=== PATIENT | female | born 1935 | race Caucasian/White ===

== ENCOUNTER 2018-05-29 09:33 | Emergency (ER) | payer OTHER ==
--- NOTE | 2018-05-29 09:42 | PDOC ---
History of Present Illness - General Chief Complaint: Pain Stated Complaint: LEFT HAND SWELLING, PAIN Time Seen by Provider: 05/29/18 09:37 History Source: Patient, Family (Daughter) Exam Limitations: No Limitations - History of Present Illness Initial Comments: Pt, with PMH of rheumatoid arthritis, HTN, HLD, and anxiety, presents with pain and swelling of the L index finger x 2 weeks. The pt states the pain is located in the joint space of the L index finger (points to MCP and PIP) and on the palmar aspect of the L hand. She has occasional flares of arthritis, but the pain normally only lasts for 1-2 days. This episode has lasted for 2 weeks, is worsening in pain and swelling, and is now disturbing her sleep. She took 2 aspirin this morning with no relief of pain. The pain is sharp, lasts for a few minutes at a time, and is worse with flexion of the wrist and fingers. She denies any fevers/chills, nausea/vomiting, other joint pain, recent punctures or insect bites, or changes to BM or urination. The pt states she avoids eating red meats and other high fat/protein foods. She is normally seen by Dr. Pandya for PCP, who stated the pt was seen for RA work-up. She did not have significantly elevated CRP/ESR and has not taken any steroidal medications for flares. She has never had a history of gout. 05/29/18 10:41 Past History - Travel Traveled outside of the country in the last 30 days: No Close contact w/someone who was outside of country & ill: No - Past Medical History Allergies/Adverse Reactions: Allergies Allergy/AdvReac Type Severity Reaction Status Date / Time No Known Allergies Allergy Verified 05/29/18 09:34 Home Medications: Ambulatory Orders Amlodipine Besylate 5 mg PO BID 05/29/18 Atorvastatin Ca [Lipitor] 10 mg PO HS 05/29/18 Lisinopril 20 mg PO BID 05/29/18 Lorazepam 1 mg PO TID 05/29/18 Methylprednisolone [Medrol Dose Niraj] 4 mg PO ASDIR #21 tablet 05/29/18 Ranitidine [Zantac -] 150 mg PO BID 05/29/18 Sertraline HCl 50 mg PO DAILY 05/29/18 Anemia: No Asthma: No Cancer: No Cardiac Disorders: No CVA: No COPD: No CHF: No Dementia: No Diabetes: No GI Disorders: Yes (HH.PYLORIC GASTRITIS) Disorders: No HTN: Yes Hypercholesterolemia: Yes Liver Disease: No Seizures: No Thyroid Disease: No - Surgical History Abdominal Surgery: No Appendectomy: No Cardiac Surgery: No Cholecystectomy: No Lung Surgery: No Neurologic Surgery: No Orthopedic Surgery: No - Suicide/Smoking/Psychosocial Hx Smoking History: Never smoked Have you smoked in the past 12 months: No Information on smoking cessation initiated: No Hx Alcohol Use: No Drug/Substance Use Hx: No Substance Use Type: None Hx Substance Use Treatment: No Review of Systems - Review of Systems Able to Perform ROS?: Yes Is the patient limited Indonesian proficient: No Constitutional: Yes: Weight Stable. No: Chills, Diaphoresis, Fever, Loss of Appetite, Malaise HEENTM: No: Blurred Vision, Recent change in vision, Hearing Loss, Difficulty Swallowing Respiratory: No: Cough, Orthopnea, Shortness of Breath Cardiac (ROS): No: Chest Pain, Edema, Irregular Heart Rate, Palpitations, Syncope ABD/GI: No: Abdominal Distended, Constipated, Diarrhea, Nausea, Poor Appetite, Poor Fluid Intake, Vomiting : No: Burning, Dysuria, Frequency, Hematuria, Pain, Urgency Musculoskeletal: Yes: Joint Pain (Pain in L index MCP/PIP and palmar aspect under index MCP.), Joint Swelling (occasional swelling and stiffness of hands and wrists. ), Joint Stiffness. No: Back Pain Integumentary: No: Bruising, Rash, Sweating Neurological: No: Headache, Paresthesia, Weakness Psychiatric: No: Sleep Pattern Change, Change in Appetite Endocrine: No: Change in Weight Hematologic/Lymphatic: No: Anemia, Blood Clots All Other Systems: Reviewed and Negative *Physical Exam - Vital Signs Last Vital Signs Temp Pulse Resp BP Pulse Ox 98 F 86 18 177/81 97 05/29/18 09:33 05/29/18 09:33 05/29/18 09:33 05/29/18 09:33 05/29/18 09:33 - Physical Exam General Appearance: Yes: Appropriately Dressed, Thin. No: Apparent Distress HEENT: positive: EOMI, Normal ENT Inspection, Normal Voice, Symmetrical, Pharynx Normal, Hearing Grossly Normal Neck: positive: Trachea midline, Normal Thyroid, Supple. negative: Tender, Rigid Respiratory/Chest: positive: Lungs Clear, Normal Breath Sounds. negative: Chest Tender, Respiratory Distress, Accessory Muscle Use Cardiovascular: positive: Regular Rhythm, Regular Rate, S1, S2. negative: Edema , JVD, Murmur Vascular Pulses: Carotid (R): 4+, Carotid (L): 4+ Comments:: Radial pulses intact b/l 05/29/18 18:26 Gastrointestinal/Abdominal: positive: Normal Bowel Sounds, Flat, Soft. negative : Tender, Organomegaly, Pulsatile Mass Lymphatic: negative: Adenopathy, Tenderness Musculoskeletal: positive: Decreased Range of Motion (Firm swelling and decreased flexion and extension of L MCP and PIP). negative: Normal Inspection , CVA Tenderness Extremity: positive: Normal Capillary Refill, Normal Inspection, Tender (Warm, tender L index MCP and PIP, tenderness over palmar aspect below MCP). negative : Normal Range of Motion Integumentary: positive: Normal Color, Dry, Warm, Swelling (L index). negative : Bruising Neurologic: positive: tooth cutter pinion II-XII NML intact, Fully Oriented, Alert, Normal Mood/ Affect, Normal Response, Motor Strength 03/12 ED Treatment Course - LABORATORY CBC & Chemistry Diagram: 05/29/18 10:00 05/29/18 10:00 Medical Decision Making - Medical Decision Making Pt seen with Dr. Reagan. Will start 1 g ofirmev for pain. Ordered CBC, CMP, uric acid, ESR, CRP and L hand x-ray to r/o gout vs cellulitis vs arthritis flare. 05/29/18 09:[address] Pandya who agreed with plan. Pending results to determine potential observation (cellulitis) versus discharge with close follow-up by Dr. Pandya and rheumatology or Dr. Andrade (ortho). CBC showed no increased WBC. Per Dr. Reagan, x-ray shows some joint space narrowing at thumb and index MCP/PIP. No osteolytic changes or fractures noted. Awaiting CMP and inflammatory markers. 05/29/18 10:37 (Entered later) ESR and CRP slightly above baseline (30/.5). Will follow-up in clinic with Dr Pandya and Dr. Andrade (ortho). Likely flare of rheumatoid arthritis. Provided 10 mg dexamethasone and prescribed medrol pack until pt can see Dr. Pandya tomorrow. 07/22/18 18:28 *DC/Admit/Observation/Transfer Diagnosis at time of Disposition: Joint pain in fingers of left hand - Discharge Dispostion Disposition: HOME Condition at time of disposition: Improved Decision to Admit order: No - Prescriptions Prescriptions: Methylprednisolone [Medrol Dose Niraj] 4 mg PO ASDIR #21 tablet - Referrals Referrals: Ladarius Pandya MD [Primary Care Provider] - Bharat Andrade MD [Staff Physician] - Renny Brown MD [Staff Physician] - - Patient Instructions Printed Discharge Instructions: DI for Rheumatoid Arthritis, DI for Joint Pain Additional Instructions: You were given a dose of steroids in the ER for the joint pain in your finger. A steroid pack has been sent to your pharmacy. You may take the steroid (4 mg) before your appointment with your primary care doctor. Please see Dr. Pandya in clinic tomorrow and you can also see Dr. Andrade in orthopedics. Please return if you have any worsening pain, fevers or chills, inability to tolerate food or fluids, or any other concerns. - Post Discharge Activity
--- NOTE | 2018-05-29 09:43 | PDOC ---
Attending Attestation - Resident Resident Name: Charley Houser - ED Attending Attestation I have performed the following: I have examined & evaluated the patient, The case was reviewed & discussed with the resident, I agree w/resident's findings & plan, Exceptions are as noted - HPI HPI: 05/29/18 09:50 A 83-year-old female history of hypertension hyperlipidemia and arthritis here today complaining of left hand pain near the index finger and middle finger. Patient states she woke up today with the pain. Has had episodes of intermittent swelling but denies any history of gout no fever no chills denies any trauma has been sweeping the floor recently otherwise no injuries. Overall feels that the hand is painful worse with movement she did take 2 ibuprofen prior to arrival this a.m. no relief - Physicial Exam PE: 05/29/18 09:52 Awake alert no acute distress cardiac exam is unremarkable equal breath sounds bilaterally heart is regular with any murmurs rubs or gallops. Left hand is noted for swelling erythema and warmth along the left index finger decreased range of motion at the MCP PIP and DIP joints. Some swelling erythema to to the distal palm at the base of the index finger pain with passive range of motion finger is held in slight flexion however there is no pain along the tendon sheath on palpation distally the patient is neurovascularly intact she has 2+ radius and ulnar pulses the wrist is with full range of motion nontender - Medical Decision Making 05/29/18 09:53 Differential diagnosis for this left hand swelling includes cellulitis, gouty arthritis however unlikely due to the patient's first episode at 83 years old, worsening arthritis a cold injury plan CBC CMP ESR CRP and uric acid. X-rays of the left index finger. We'll start with Tylenol for pain and reassess 05/29/18 10:46 Discussion with patient's primary Dr. Pandya that patient does have a history of questionable rheumatoid arthritis and did test positive for rheumatoid factor in the past. She has had intermittent flares in her hands has never required steroids in the past. Review of the patient's chart shows that she does also have a history of esophageal varices does take baby aspirin daily no current melena or bleeding issues labs pending x-rays show mild degenerative changes at the PIP joints of both the index middle finger as well as the IP joints of the thumb and CMC joint consistent with likely rheumatoid arthritis
[2018-05-29 09:46] VITALS: TEMP 98; BMI 22.8
[2018-05-29] MEDS ORDERED: ACETAMINOPHEN 1000 MG/100 ML VIAL (NON FORMULARY) IVPB ONE (09:54)
[2018-05-29] MEDS ORDERED: ACETAMINOPHEN INJECTION 100 ML IVPB ONE (10:03)
[2018-05-29 10:26] LABS: BASO % 0.8 % (0-2.0); EOS % 0.9 % (0-4.5); HEMATOCRIT 38.4 % (32.4-45.2); HEMOGLOBIN 13.1 GM/dl (10.7-15.3); LYMPH % 22.7 % (8-40); MCH 31.5 pg (25.7-33.7); MCHC 34.1 g/dl (32.0-36.0); MEAN CELL VOLUME 92.4 fl (80-96); MEAN PLT VOLUME 9.2 fl (7.5-11.1); MONO % 9.6 % (3.8-10.2); PLATELET COUNT 239 K/MM3 (134-434); RBC 4.16 M/mm3 (3.60-5.2); RDW 12.1 % (11.6-15.6); WHITE BLOOD COUNT 7.2 K/mm3 (4.0-10.8)
[2018-05-29 10:42] LABS: ALBUMIN 3.7 g/dl (3.5-5.0); ALK PHOS 83 U/L (32-92); ANION GAP 8 (8-16); BILIRUBIN,TOTAL 0.7 mg/dl (0.2-1.0); BLOOD UREA NITROGEN 12 mg/dl (7-18); CALCIUM 8.9 mg/dl (8.4-10.2); CHLORIDE 100 mmol/L (98-107); CO2 24 mmol/L (22-28); CREATININE 0.6 mg/dl (0.6-1.3); GLUCOSE,RANDOM 86 mg/dl (74-106); POTASSIUM 4.2 mmol/L (3.5-5.1); SGOT/AST 30 U/L (10-42); SGPT/ALT 19 U/L (10-40); SODIUM 132 mmol/L (136-145); TOT PROT 6.6 g/dl (6.4-8.3); URIC ACID 3.6 mg/dl (2.6-7.2)
[2018-05-29] MEDS ORDERED: DEXAMETHASONE SOD PHOSPHATE 20 MG/5 ML VIAL IVPB ONE (10:54)
[2018-05-29] MEDS ORDERED: DEXAMETHASONE SOD PHOSPHATE 10 MG/1 ML VIAL ONE (10:57)
[2018-05-29 11:20] LABS: ERYTHROCYTE SEDIMENTATION RATE 34 mm/hr (0-30)
[2018-05-29 11:35] VITALS: BP 153/81; PULSE 79
== END 2018-05-29 11:35 | disposition home or self-care (01) ==
LOC: FER 09:33
PROC: 3E033NZ Introduction of Analgesics, Hypnotics, Sedatives into Peripheral Vein, Percutaneous Approach (ICD-10-PCS; principal; 2018-05-29)
PROC: 3E033GC Introduction of Other Therapeutic Substance into Peripheral Vein, Percutaneous Approach (ICD-10-PCS; 2018-05-29)
DX: M25.542 Pain in joints of left hand (principal); R05 Cough; I10 Essential (primary) hypertension; E78.5 Hyperlipidemia, unspecified; F41.9 Anxiety disorder, unspecified; M06.9 Rheumatoid arthritis, unspecified
CPT/HCPCS: 36415; 73130-TC-LR-FY; 80053; 84550; 85025; 85651; 86140; 99284-25; J0131

== ENCOUNTER 2021-04-10 19:28 | Inpatient (IN) | payer OTHER ==
[2021-04-10 21:08] LABS: BASO % 0.2 % (0-2.0); EOS % 0.9 % (0-4.5); HEMATOCRIT 39.4 % (32.4-45.2); HEMOGLOBIN 13.7 GM/dL (10.7-15.3); LYMPH % 18.6 % (8-40); MCH 33.2 pg (25.7-33.7); MCHC 34.7 g/dl (32.0-36.0); MEAN CELL VOLUME 95.8 fl (80-96); MEAN PLT VOLUME 8.6 fl (7.5-11.1); NEUT % 67.3 % (42.8-82.8); PLATELET COUNT 201 K/MM3 (134-434); RBC 4.12 M/mm3 (3.60-5.2); RDW 12.5 % (11.6-15.6); WHITE BLOOD COUNT 6.6 K/mm3 (4.0-10.0)
[2021-04-10 21:28] LABS: CALCIUM 9.1 mg/dL (8.5-10.1)
[2021-04-10 21:29] LABS: BLOOD UREA NITROGEN 21.2 mg/dL (7-18); CO2 23 mmol/L (21-32); GLUCOSE,RANDOM 139 mg/dL (74-106)
[2021-04-10 21:32] LABS: CREATININE 0.8 mg/dL (0.55-1.3)
[2021-04-10 22:04] LABS: ANION GAP 12 MMOL/L (8-16); CHLORIDE 91 mmol/L (98-107); SODIUM 125 mmol/L (136-145)
[2021-04-10] MEDS ORDERED: SODIUM CHLORIDE 1,000 ML IV SCH (22:45)
[2021-04-10] MEDS ORDERED: LORazepam 1 MG TABLET PO PRN (23:44)
[2021-04-11 07:56] LABS: BLOOD UREA NITROGEN 12.9 mg/dL (7-18); CALCIUM 9.1 mg/dL (8.5-10.1)
[2021-04-11 08:00] LABS: CREATININE 0.5 mg/dL (0.55-1.3)
[2021-04-11] MEDS: metoPROLOL SUCCINATE 25 MG TAB.SR.24H (FP) PO SCH (09:17)
[2021-04-11] MEDS: amLODIPine BESYLATE 5 MG TABLET (FP) PO SCH (09:17)
[2021-04-11] MEDS: SERTRALINE HCL 50 MG TABLET (FP) PO SCH (12:33)
[2021-04-11] MEDS: ENOXAPARIN NA (PORCINE) 40 MG/0.4 ML DISP.SYRIN SQ SCH (17:39)
[2021-04-11 21:45] VITALS: BMI 21.9
[2021-04-11] MEDS ORDERED: ATORVASTATIN CA 10 MG TABLET (FP) PO SCH (22:00)
[2021-04-11] MEDS ORDERED: LORazepam 1 MG TABLET PO SCH (22:00)
[2021-04-11] MEDS ORDERED: metoPROLOL SUCCINATE 25 MG TAB.SR.24H (FP) PO ONE (23:45)
[2021-04-12 07:51] LABS: BLOOD UREA NITROGEN 8.8 mg/dL (7-18); CALCIUM 8.8 mg/dL (8.5-10.1)
[2021-04-12 07:53] LABS: CREATININE 0.4 mg/dL (0.55-1.3)
[2021-04-12] MEDS: metoPROLOL SUCCINATE 25 MG TAB.SR.24H (FP) PO SCH (09:08)
[2021-04-12] MEDS: amLODIPine BESYLATE 5 MG TABLET (FP) PO SCH (09:08)
[2021-04-12] MEDS: ENOXAPARIN NA (PORCINE) 40 MG/0.4 ML DISP.SYRIN SQ SCH (09:09)
[2021-04-12] MEDS: SERTRALINE HCL 50 MG TABLET (FP) PO SCH (09:09)
[2021-04-12 15:25] VITALS: BP 144/69; PULSE 77; TEMP 98.4
== END 2021-04-12 17:34 | disposition home or self-care (01) | DRG 641 ==
LOC: JER 19:28 → JERBED 22:26 → J4W 04-11 01:01
PROVIDERS: ADMIT Internal Medicine; ATTEND Internal Medicine
DX: E87.1 Hypo-osmolality and hyponatremia (principal); M06.9 Rheumatoid arthritis, unspecified; I10 Essential (primary) hypertension; E78.5 Hyperlipidemia, unspecified; F41.9 Anxiety disorder, unspecified; R00.2 Palpitations
CPT/HCPCS: 36415; 71045-TC-FY; 80048; 80061; 82550; 82553; 83036; 83721; 83735; 84443; 84484; 85025; 93005; 93010; 93306-TC; 97116-GP; 97161-GP; 99285-25; C9803; U0003; U0005